=== PATIENT | male | born 1995 | race African-American/Black ===

== ENCOUNTER 2017-06-20 21:18 | Emergency (ER) | payer SELFPAY ==
[~2017-06-20] VITALS: Ht 185.4 cm; Wt 90.7 kg
[2017-06-20] MEDS: PHENAZOPYRIDINE HCL 100 MG TABLET PO ONE (22:04)
[2017-06-20 22:06] LABS: *BILIRUBIN,URIN NEGATIVE (NEGATIVE); *BLOOD, URINE 1+ (NEGATIVE); *CLARITY,URINE CLOUDY (CLEAR); *COLOR,URINE YELLOW (YELLOW); *KETONES,URINE NEGATIVE (NEGATIVE); *PROTEIN,URINE 2+ (NEGATIVE); LEUKOCYTE ESTERASE ,URINE 2+ (NEGATIVE); NITRITE, URINE NEGATIVE (NEGATIVE); UGLUCOSE NEGATIVE (NEGATIVE)
[2017-06-20] MEDS ORDERED: PHENAZOPYRIDINE HCL 100 MG TABLET ONE (22:17)
[2017-06-20 22:25] LABS: BACTERIA,URINE FEW /HPF (NONE SEEN); SQUAMOUS EPITHELIAL CELL,UR FEW /HPF (NONE SEEN); WBC,URINE 80-100 /HPF (0-3)
[2017-06-20] MEDS: CEFTRIAXONE 500 MG VIAL IM ONE (22:33)
[2017-06-20] MEDS: AZITHROMYCIN 250 MG TABLET PO ONE (22:34)
[2017-06-20] MEDS ORDERED: CEFTRIAXONE 500 MG VIAL ONE (22:42)
[2017-06-20] MEDS ORDERED: AZITHROMYCIN 250 MG TABLET ONE (22:42)
--- NOTE | 2017-06-20 22:51 | NUR ---
Patient discharged to home in stable conditon. Written and verbal after care instructions given. Patient verbalizes understanding of instructions. Ambulated from ER with stable gait. All belongings with patient. patient will be driven home in a private vehicle by his significant other.
[2017-06-20 22:54] VITALS: BP 126/77
== END 2017-06-20 22:54 | disposition home or self-care (01) ==
LOC: ER 21:21
DX: N39.0 Urinary tract infection, site not specified (principal)
CPT/HCPCS: 81001; 87086; 87491; 96372; 99284; A4663; J0696; J3490; Q0144